=== PATIENT | female | born 1935 | race Caucasian/White ===

== ENCOUNTER 2017-12-19 04:14 | Inpatient (IN) ==
[2017-12-19] MEDS ORDERED: MORPHINE 2 MG/1 ML SYRINGE IV STA (04:55)
[2017-12-19] MEDS ORDERED: MORPHINE 2 MG/1 ML SYRINGE ONE (05:23)
[2017-12-19] MEDS: SODIUM CHLORIDE 0.9% 1,000 ML IV SCH (05:35)
[2017-12-19] MEDS: ONDANSETRON 4 MG/2 ML VIAL IV PRN ×2 (05:37→21:48)
[2017-12-19 05:48] LABS: Basophils # 0.1 10*3/uL (0.0-0.2); Basophils % 0.7 % (0.0-0.8); Eosinophils # 0.1 10*3/uL (0.0-0.87); Eosinophils % 1.6 % (0.00-10.9); Hematocrit 39.1 VOL% (35.7-47.0); Hemoglobin 13.4 GM/DL (12.0-16.0); Immature Granulocytes % 0.4 %; Immature Granulocytes Absolute 0.03 #; Lymphocytes # 1.1 10*3/uL (1.4-4.0); Mean Corpuscular HGB Conc 34.3 GM/DL (32-36); Mean Corpuscular Hemoglobin 32 PG (27-34); Mean Corpuscular Volume 91.8 FL (87-102); Mean Platelet Volume 10.2 FL (9.6-12.0); Monocytes # 0.5 10*3/uL (0.11-0.8); Monocytes % 7.6 % (1.7-12.7); Neutrophils # 5.1 10*3/uL (1.4-7.4); Neutrophils % 73.7 % (38.7-73.9); Platelet Count 131 T/CUMM (130-400); Red Blood Count 4.26 MC/CUMM (3.8-5.5); Red Cell Distribution Width 12.5 % (9.3-17.3); White Blood Count 6.9 T/CUMM (4-12)
[2017-12-19 05:55] LABS: PT Patient Result 10.4 SECS
[2017-12-19 06:14] LABS: Calcium 9.9 MG/DL (8.5-10.1); Magnesium 2.5 MG/DL (1.8-2.4); Osmolality,Calculated 284.7 MOS/KG (273-304); Potassium 5.2 MMOL/L (3.5-5.1)
[2017-12-19 06:30] LABS: Apearance,Urine CLEAR (Clear); Bilirubin,Urine Negative (Negative); Blood, Urine Small mg/dL (Negative); Glucose,Urine (UA) >=500 mg/dL (Negative); Ketones,Urine Negative (Negative); Mucus,Urine Occasional /LPF (Occasional); Nitrite,Urine Negative (Negative); Protein,Urine Negative; RBC,Urine 6 /HPF (0-4); Squamous Epithelial Cell,Urine Occasional /HPF (0-10); Urine Color Straw (Yellow); Urine Specific Gravity 1.024 (1.001-1.035); Urine Urobilinogen < 2.0 EU/DL (0.2-1.0); WBC,Urine 2 /HPF (0-6)
[2017-12-19] MEDS ORDERED: MORPHINE 2 MG/1 ML SYRINGE IV PRN ×3 (08:23→14:19)
[2017-12-19] MEDS ORDERED: ceFAZolin 1,000 MG in SYRINGE 1 EACH IV ONE (08:23)
[2017-12-19] MEDS ORDERED: DEXTROSE 50% 25 GM/50 ML VIAL IV PRN (08:36)
[2017-12-19] MEDS ORDERED: GLUCAGON 1 MG VIAL IM PRN (08:36)
[2017-12-19] MEDS: DOCUSATE SODIUM 100 MG CAPSULE PO SCH ×2 (11:12→21:46)
[2017-12-19] MEDS: PANTOPRAZOLE 40 MG VIAL IV SCH (11:12)
[2017-12-19] MEDS: INSULIN LISPRO 100 UNIT/ML SUBCUT SCH ×3 (11:34→21:49)
[2017-12-19] MEDS ORDERED: BACITRACIN OINT 0.9 GM PACK TOP ONE (14:06)
[2017-12-19] MEDS ORDERED: SODIUM CHLORIDE 0.9% 100 ML IV ONE (14:30)
[2017-12-19] MEDS ORDERED: PROPOFOL 200 MG/20 ML VIAL IV ONE (14:30)
[2017-12-19] MEDS ORDERED: fentaNYL 100 MCG/2 ML VIAL ONE (14:30)
[2017-12-19] MEDS ORDERED: ONDANSETRON 4 MG/2 ML VIAL IV PRN (14:40)
[2017-12-19] MEDS: KETOROLAC 15 MG/1 ML VIAL IV SCH ×2 (16:58→21:48)
[2017-12-19] MEDS: ceFAZolin 1,000 MG in SYRINGE 1 EACH IV SCH (18:51)
[2017-12-19] MEDS: LISINOPRIL 10 MG TABLET PO SCH (21:46)
[2017-12-20] MEDS: SODIUM CHLORIDE 0.9% 1,000 ML IV SCH ×2 (00:42→09:26)
[2017-12-20] MEDS: ceFAZolin 1,000 MG in SYRINGE 1 EACH IV SCH (03:20)
[2017-12-20] MEDS: KETOROLAC 15 MG/1 ML VIAL IV SCH ×2 (03:35→09:12)
[2017-12-20 06:08] LABS: Basophils % 0.4 % (0.0-0.8); Eosinophils # 0.2 10*3/uL (0.0-0.87); Hematocrit 30.3 VOL% (35.7-47.0); Hemoglobin 10.2 GM/DL (12.0-16.0); Immature Granulocytes % 0.4 %; Immature Granulocytes Absolute 0.02 #; Lymphocytes # 1.3 10*3/uL (1.4-4.0); Lymphocytes % 24.4 % (21.3-54.2); Mean Corpuscular HGB Conc 33.7 GM/DL (32-36); Mean Corpuscular Hemoglobin 31 PG (27-34); Mean Corpuscular Volume 93.2 FL (87-102); Mean Platelet Volume 10.7 FL (9.6-12.0); Monocytes # 0.5 10*3/uL (0.11-0.8); Monocytes % 9.8 % (1.7-12.7); Neutrophils # 3.3 10*3/uL (1.4-7.4); Platelet Count 103 T/CUMM (130-400); Red Blood Count 3.25 MC/CUMM (3.8-5.5); Red Cell Distribution Width 12.6 % (9.3-17.3); White Blood Count 5.3 T/CUMM (4-12)
[2017-12-20 06:56] LABS: Osmolality,Calculated 286.8 MOS/KG (273-304); Potassium 4.7 MMOL/L (3.5-5.1)
[2017-12-20 06:58] LABS: Albumin 2.6 G/DL (3.4-5.0); Bilirubin,Total 0.9 MG/DL (0.2-1.0); Calcium 8.8 MG/DL (8.5-10.1); Osmolality,Calculated 287.7 MOS/KG (273-304); Potassium 4.7 MMOL/L (3.5-5.1); Total Protein 5.5 G/DL (6.4-8.3)
[2017-12-20] MEDS: FONDAPARINUX 2.5 MG/0.5 ML SYRINGE SUBCUT SCH (09:11)
[2017-12-20] MEDS: DOCUSATE SODIUM 100 MG CAPSULE PO SCH ×2 (09:11→20:23)
[2017-12-20] MEDS: PANTOPRAZOLE 40 MG VIAL IV SCH (09:12)
[2017-12-20] MEDS: INSULIN LISPRO 100 UNIT/ML SUBCUT SCH ×4 (09:14→20:22)
[2017-12-20] MEDS: POLYMYXIN/TRIMETHOPRIM OPH SOL 10 ML BOTTLE RIGHT EYE SCH ×5 (12:40→22:38)
[2017-12-20] MEDS: glyBURIDE 2.5 MG TABLET PO SCH (12:40)
[2017-12-20] MEDS ORDERED: ACETAMINOPHEN 325 MG TABLET PO PRN (14:20)
[2017-12-20] MEDS: metFORMIN 500 MG TABLET PO SCH (17:22)
[2017-12-20] MEDS: LISINOPRIL 10 MG TABLET PO SCH (20:23)
[2017-12-21] MEDS: POLYMYXIN/TRIMETHOPRIM OPH SOL 10 ML BOTTLE RIGHT EYE SCH ×8 (02:30→21:47)
[2017-12-21 06:17] LABS: Basophils % 0.4 % (0.0-0.8); Eosinophils # 0.2 10*3/uL (0.0-0.87); Eosinophils % 3.8 % (0.00-10.9); Hematocrit 29.6 VOL% (35.7-47.0); Immature Granulocytes % 0.4 %; Immature Granulocytes Absolute 0.02 #; Lymphocytes # 1.3 10*3/uL (1.4-4.0); Lymphocytes % 28.3 % (21.3-54.2); Mean Corpuscular HGB Conc 33.8 GM/DL (32-36); Mean Corpuscular Hemoglobin 32 PG (27-34); Mean Corpuscular Volume 94.3 FL (87-102); Mean Platelet Volume 10.5 FL (9.6-12.0); Monocytes # 0.5 10*3/uL (0.11-0.8); Monocytes % 10.1 % (1.7-12.7); Neutrophils # 2.7 10*3/uL (1.4-7.4); Platelet Count 96 T/CUMM (130-400); Red Blood Count 3.14 MC/CUMM (3.8-5.5); Red Cell Distribution Width 12.7 % (9.3-17.3); White Blood Count 4.7 T/CUMM (4-12)
[2017-12-21] MEDS: INSULIN LISPRO 100 UNIT/ML SUBCUT SCH ×4 (07:21→21:47)
[2017-12-21] MEDS: FONDAPARINUX 2.5 MG/0.5 ML SYRINGE SUBCUT SCH (08:33)
[2017-12-21] MEDS: MAGNESIUM HYDROXIDE SUSP 30 ML UDCUP PO PRN ×2 (08:33→21:35)
[2017-12-21] MEDS: glyBURIDE 2.5 MG TABLET PO SCH ×2 (08:34→17:25)
[2017-12-21] MEDS: PANTOPRAZOLE 40 MG VIAL IV SCH (08:34)
[2017-12-21] MEDS: DOCUSATE SODIUM 100 MG CAPSULE PO SCH ×2 (08:34→21:35)
[2017-12-21] MEDS: metFORMIN 500 MG TABLET PO SCH ×2 (08:35→17:25)
[2017-12-22] MEDS: POLYMYXIN/TRIMETHOPRIM OPH SOL 10 ML BOTTLE RIGHT EYE SCH ×7 (01:02→20:59)
[2017-12-22] MEDS: INSULIN LISPRO 100 UNIT/ML SUBCUT SCH ×4 (07:12→20:36)
[2017-12-22] MEDS: ONDANSETRON 4 MG/2 ML VIAL IV PRN (08:19)
[2017-12-22] MEDS: PANTOPRAZOLE 40 MG VIAL IV SCH (08:21)
[2017-12-22] MEDS: FONDAPARINUX 2.5 MG/0.5 ML SYRINGE SUBCUT SCH (08:23)
[2017-12-22] MEDS: metFORMIN 500 MG TABLET PO SCH ×2 (08:25→17:20)
[2017-12-22] MEDS: glyBURIDE 2.5 MG TABLET PO SCH ×2 (08:26→17:18)
[2017-12-22] MEDS: DOCUSATE SODIUM 100 MG CAPSULE PO SCH ×2 (08:26→20:37)
[2017-12-22] MEDS ORDERED: diphenhydrAMINE 50 MG/1 ML VIAL IV PRN (23:08)
[2017-12-23] MEDS: POLYMYXIN/TRIMETHOPRIM OPH SOL 10 ML BOTTLE RIGHT EYE SCH ×8 (02:10→22:35)
[2017-12-23] MEDS: INSULIN LISPRO 100 UNIT/ML SUBCUT SCH ×4 (07:31→21:31)
[2017-12-23] MEDS: glyBURIDE 2.5 MG TABLET PO SCH ×2 (08:35→17:00)
[2017-12-23] MEDS: metFORMIN 500 MG TABLET PO SCH ×2 (08:36→17:00)
[2017-12-23] MEDS: PANTOPRAZOLE 40 MG VIAL IV SCH (08:37)
[2017-12-23] MEDS: DOCUSATE SODIUM 100 MG CAPSULE PO SCH ×2 (08:37→21:32)
[2017-12-23] MEDS: FONDAPARINUX 2.5 MG/0.5 ML SYRINGE SUBCUT SCH (08:37)
[2017-12-23] MEDS: diphenhydrAMINE 2% CREAM 28 GM TUBE TOP PRN (14:42)
[2017-12-24] MEDS: POLYMYXIN/TRIMETHOPRIM OPH SOL 10 ML BOTTLE RIGHT EYE SCH ×8 (01:45→22:55)
[2017-12-24] MEDS: INSULIN LISPRO 100 UNIT/ML SUBCUT SCH ×4 (08:00→21:55)
[2017-12-24] MEDS: ONDANSETRON 4 MG/2 ML VIAL IV PRN (08:41)
[2017-12-24] MEDS: metFORMIN 500 MG TABLET PO SCH ×2 (08:47→17:00)
[2017-12-24] MEDS: glyBURIDE 2.5 MG TABLET PO SCH ×2 (08:47→17:00)
[2017-12-24] MEDS: FONDAPARINUX 2.5 MG/0.5 ML SYRINGE SUBCUT SCH (08:47)
[2017-12-24] MEDS: PANTOPRAZOLE 40 MG VIAL IV SCH (08:48)
[2017-12-24] MEDS: DOCUSATE SODIUM 100 MG CAPSULE PO SCH ×2 (08:49→22:00)
[2017-12-25] MEDS: diphenhydrAMINE 2% CREAM 28 GM TUBE TOP PRN (02:13)
[2017-12-25] MEDS: POLYMYXIN/TRIMETHOPRIM OPH SOL 10 ML BOTTLE RIGHT EYE SCH ×8 (02:14→22:54)
[2017-12-25] MEDS: INSULIN LISPRO 100 UNIT/ML SUBCUT SCH ×4 (09:18→20:18)
[2017-12-25] MEDS: glyBURIDE 2.5 MG TABLET PO SCH ×2 (09:20→16:33)
[2017-12-25] MEDS: metFORMIN 500 MG TABLET PO SCH ×2 (09:21→16:33)
[2017-12-25] MEDS: FONDAPARINUX 2.5 MG/0.5 ML SYRINGE SUBCUT SCH (09:24)
[2017-12-25] MEDS: PANTOPRAZOLE 40 MG VIAL IV SCH (09:25)
[2017-12-25] MEDS: DOCUSATE SODIUM 100 MG CAPSULE PO SCH ×2 (09:28→20:14)
[2017-12-26] MEDS: POLYMYXIN/TRIMETHOPRIM OPH SOL 10 ML BOTTLE RIGHT EYE SCH ×5 (02:38→14:17)
[2017-12-26] MEDS: diphenhydrAMINE 2% CREAM 28 GM TUBE TOP PRN (09:00)
[2017-12-26] MEDS: INSULIN LISPRO 100 UNIT/ML SUBCUT SCH ×2 (09:26→11:40)
[2017-12-26] MEDS: metFORMIN 500 MG TABLET PO SCH (09:27)
[2017-12-26] MEDS: glyBURIDE 2.5 MG TABLET PO SCH (09:27)
[2017-12-26] MEDS: DOCUSATE SODIUM 100 MG CAPSULE PO SCH (09:29)
[2017-12-26] MEDS: FONDAPARINUX 2.5 MG/0.5 ML SYRINGE SUBCUT SCH (09:30)
[2017-12-26] MEDS: PANTOPRAZOLE 40 MG VIAL IV SCH (09:32)
[2017-12-26 11:04] LABS: Basophils % 0.7 % (0.0-0.8); Eosinophils # 0.2 10*3/uL (0.0-0.87); Eosinophils % 5.3 % (0.00-10.9); Hematocrit 34.2 VOL% (35.7-47.0); Immature Granulocytes % 0.5 %; Immature Granulocytes Absolute 0.02 #; Lymphocytes % 23.6 % (21.3-54.2); Mean Corpuscular HGB Conc 32.2 GM/DL (32-36); Mean Corpuscular Hemoglobin 31 PG (27-34); Mean Corpuscular Volume 97.7 FL (87-102); Mean Platelet Volume 10.1 FL (9.6-12.0); Monocytes # 0.4 10*3/uL (0.11-0.8); Monocytes % 9.2 % (1.7-12.7); Neutrophils # 2.7 10*3/uL (1.4-7.4); Neutrophils % 60.7 % (38.7-73.9); Platelet Count 165 T/CUMM (130-400); Red Cell Distribution Width 13.2 % (9.3-17.3); White Blood Count 4.4 T/CUMM (4-12)
[2017-12-26 11:25] VITALS: BP 109/58
[2017-12-26 11:33] LABS: Calcium 9.6 MG/DL (8.5-10.1); Osmolality,Calculated 284.8 MOS/KG (273-304); Potassium 4.2 MMOL/L (3.5-5.1)
== END 2017-12-26 12:50 | disposition swing bed (61) | DRG 482 ==
LOC: N.ED 04:14 → SUATTDRO 06:12 → N.EDINP 06:12 → N.3E 06:37
PROVIDERS: ADMIT Internal Medicine; ATTEND Internal Medicine